=== PATIENT | male | born 1990 | race Caucasian/White ===

== ENCOUNTER 2018-03-31 11:45 | Emergency (ER) | payer OTHER ==
[~2018-03-31] VITALS: Ht 182.9 cm; Wt 90.7 kg
[~2018-03-31 11:45] MED LIST: CEPH500 PO; DIPH25 PO; HYDACE5325 PO; NYST100TC TOP; PRED20 PO
[2018-03-31 12:42] LABS: BASOPHILS ABSOLUTE AUTO 0.03 K/mm3 (0.00-0.23); BASOPHILS PERCENT AUTO 1 % (0-2); EOSINOPHILS ABSOLUTE AUTO 0.11 K/mm3 (0.00-0.68); EOSINOPHILS PERCENT AUTO 2 % (0-6); Hematocrit 44.5 % (37.0-53.0); Hemoglobin 15.2 g/dL (13.5-17.5); IMMATURE GRAN ABSOLUTE AUTO 0.04 K/mm3 (0.00-0.10); IMMATURE GRAN PERCENT AUTO 1 % (0-1); LYMPHOCYTES ABSOLUTE AUTO 1.97 K/mm3 (0.84-5.20); LYMPHOCYTES PERCENT AUTO 43 % (21-46); MONOCYTES ABSOLUTE AUTO 0.19 K/mm3 (0.16-1.47); MONOCYTES PERCENT AUTO 4 % (4-13); Mean Corpuscular HGB 31.3 pg (26.0-34.0); Mean Corpuscular HGB Conc 34.2 g/dL (31.5-36.5); Mean Corpuscular Volume 92 fL (80-100); Mean Platelet Volume 10.8 fL (9.1-12.4); NEUTROPHILS ABSOLUTE AUTO 2.29 K/mm3 (1.96-9.15); NEUTROPHILS PERCENT AUTO 50 % (41-73); Platelet Count 157 K/mm3 (150-400); RDW Coefficient Variation 12.3 % (11.7-14.2); RDW Standard Deviation 41.2 fL (35.1-46.3); Red Blood Cell Count 4.85 M/mm3 (4.30-5.90); White Blood Cell Count 4.63 K/mm3 (4.00-11.30)
[2018-03-31 13:02] LABS: Alanine Aminotransfer (ALT/SGP 422 U/L (12-78); Albumin/Globulin Ratio 0.8 (0.8-1.8); Alk Phos 73 U/L (50-136); Anion Gap 13 mmol/L (6-16); Aspartate Aminotrans (AST/SGOT 370 U/L (12-37); Bilirubin, Total 0.4 mg/dL (0.1-1.0); Blood Urea Nitrogen 9 mg/dL (8-24); Bun/Creatinine Ratio 18.8 (12.0-20.0); CO2, Blood 23 mmol/L (21-32); Calcium, Blood 8.8 mg/dL (8.5-10.1); Chloride, Blood 103 mmol/L (98-108); Creatinine, Blood 0.48 mg/dL (0.60-1.20); Globulin, Blood 4.8 g/dL (2.2-4.0); Glomerular Filtration Rate >60 (60-); Glucose, Blood 172 mg/dL (70-99); Potassium, Blood 4.1 mmol/L (3.5-5.5); Sodium, Blood 139 mmol/L (136-145); Total Protein, Blood 8.8 g/dL (6.4-8.2)
[2018-03-31 13:06] LABS: Source, Urine Voided
[2018-03-31 13:10] LABS: Calcium, Ionized (POC) 1.17 mmol/L (1.10-1.46); Chloride (POC) 102 mmol/L (98-108); Creatinine (POC) 0.5 mg/dL (0.8-1.3); Glucose (ISTAT POC) 214 mg/dL (70-99); Hemoglobin (POC) 17.3 g/dL (13.5-17.5); Sodium (POC) 141 mmol/L (135-148); Total CO2 (POC) 17 mmol/L (21-32)
[2018-03-31 13:12] LABS: Bilirubin, Urine Neg (Neg); Blood, Urine 4+ (Neg); Glucose Qualitative, Urine Neg (Neg); Ketones, Urine 1+ (Neg); Leukocyte Esterase, Urine Neg (Neg); Nitrite, Urine Neg (Neg); Protein, Urine 4+ (Neg); Urobilinogen, Urine NORM (Normal)
[2018-03-31] MEDS ORDERED: PILO5 PO (13:17)
[2018-03-31] MEDS ORDERED: PRIVIGEN IV (13:17)
[2018-03-31] MEDS ORDERED: PRAZ1 PO (13:18)
[2018-03-31] MEDS ORDERED: Metformin HCl500 MG PO (13:18)
[2018-03-31] MEDS ORDERED: HALO5 PO (13:19)
[2018-03-31] MEDS ORDERED: ZESTORETIC 20-121 EA (13:19)
[2018-03-31] MEDS ORDERED: INDO50S (13:20)
[2018-03-31] MEDS ORDERED: ESCI10 PO (13:20)
[2018-03-31] MEDS ORDERED: GABA800 PO (13:20)
[2018-03-31] MEDS ORDERED: ATOR40TA PO (13:21)
[2018-03-31] MEDS ORDERED: BENZ2 PO (13:21)
[2018-03-31 13:22] LABS: Appearance, Urine Hazy (Clear); Color, Urine Yellow (P-Yellow)
[2018-03-31] MEDS ORDERED: FOLI1 PO (13:22)
[2018-03-31] MEDS ORDERED: CYCL10 PO (13:22)
[2018-03-31] MEDS ORDERED: PROP60 PO (13:22)
[2018-03-31] MEDS ORDERED: METTREX2.5 (13:22)
[2018-03-31 13:23] LABS: White Blood Cells, Urine 0-2 /hpf (0-5)
[2018-03-31] MEDS ORDERED: PIOG30 PO (13:23)
[2018-03-31 13:24] LABS: Bacteria Few /hpf; Squamous Epithelial Cells Not Seen /hpf (Few)
[2018-03-31 13:25] LABS: Spermatozoa Many /hpf
[2018-03-31 13:49] LABS: U Amphetamine Screen Not Detected; U Barbituate Screen Not Detected; U Benzodiazapine Screen Not Detected; U Buprenorphine Screen Not Detected; U Cannabinoids Screen Not Detected; U Cocaine Screen Not Detected; U Methadone Screen Not Detected; U Methamphetamine Screen Not Detected; U Opiates Screen Not Detected; U Oxycodone Screen Not Detected; U Phencyclidine Screen Not Detected; U Propoxyphene Screen Not Detected
[2018-03-31] MEDS ORDERED: LEVE500 PO (15:31)
== END 2018-03-31 15:56 | disposition home or self-care (01) ==
LOC: ER 11:45
PROVIDERS: Emergency Medicine
DX: M79.606 Pain in leg, unspecified (principal); G89.29 Other chronic pain; Z79.891 Long term (current) use of opiate analgesic; I10 Essential (primary) hypertension
CPT/HCPCS: 70450; 71045; 80047; 80053; 81001; 84146; 84443; 85014; 85025; 96365; 96372; 96375; 99285-25; J1953; J2060